=== PATIENT | male | born 1955 | race Caucasian/White ===

== ENCOUNTER 2018-05-05 19:01 | Observation (INO) | payer BC, SELFPAY ==
[2018-05-05] MEDS ORDERED: NA CHLORIDE 0.9% 1,000 ML ONE (19:46)
[2018-05-05] MEDS ORDERED: TETANUS & DIPHTHERIA TOX,ADULT 0.5 ML VIAL ONE (19:46)
--- NOTE | 2018-05-05 20:04 | RAD REPORT ---
EXAM DESCRIPTION: CT - Facial Bones W/ Mpr - 05/05/2018 7:56 pm CLINICAL HISTORY: Facial injury status post fall. Facial pain COMPARISON: None TECHNIQUE: Computed axial tomography of the face was obtained. Coronal and sagittal reconstruction w as performed. All CT scans are performed using dose optimization technique as appropriate and may include automated exposure control or mA/KV adjustment according to patient size. FINDINGS: A fracture is not seen. A TMJ dislocation is not noted. The globes are intact. Fluid within the sinuses is not seen. IMPRESSION: Negative for a facial fracture.
[2018-05-05 20:06] LABS: Absolute Lymphocytes (CBC) 1.5 K/uL (0.7-4.9); Absolute Monocytes 0.6 K/uL (0.1-1.3); Absolute Neutrophil 4.9 K/uL (1.8-8.0); Basophils % 0.4 % (0-1.3); Eosinophils % 1.1 % (0-4.4); Hematocrit 48.3 % (39.6-49.0); Lymphocytes % 21.4 % (15.3-44.8); MCH 36.8 pg (27.0-35.0); MCV 106.5 fL (80-100); MPV 8.1 fL (7.6-11.3); Monocytes % 8.5 % (3.3-12.3); RBC Red Blood Cell Count 4.53 M/uL (4.33-5.43)
[2018-05-05 20:10] LABS: Protime INR 1.02
--- NOTE | 2018-05-05 20:10 | RAD REPORT ---
EXAM DESCRIPTION: CT - Head Brain Wo Cont - 05/05/2018 7:56 pm CLINICAL HISTORY: Head injury status post fall COMPARISON: none TECHNIQUE: Computed axial tomography of the head was obtained. IV contrast was not requested. All CT scans are performed using dose optimization technique as appropriate and may include automated exposure control or mA/KV adjustment according to patient size. FINDINGS: An intracranial bleed is not seen . The ventricles are normal in caliber. No extra-axial fluid collection is noted. Moderate low-density areas within periventricular, deep and subcortical white matter likely represent ischemic changes secondary to small vessel disease. Fluid within the sinuses/ mastoids is not seen. IMPRESSION: No acute intracranial abnormality is seen. If patient's symptoms persist MRI of the bra in would be recommended.
[2018-05-05 20:12] LABS: ALT/SGPT 48 U/L (12-78); AST/SGOT 33 U/L (15-37); Albumin 3.5 g/dL (3.4-5.0); Alkaline Phosphatase 60 U/L (45-117); BUN Blood Urea Nitrogen 8 mg/dL (7-18); Bicarbonate 23 mmol/L (21-32); Bilirubin Direct 0.4 mg/dL (0-0.2); Bilirubin Total 1.3 mg/dL (0.2-1.0); Glucose Level 95 mg/dL (74-106); Lipase 151 U/L (73-393); Magnesium 2.1 mg/dL (1.8-2.4); Potassium 3.7 mmol/L (3.5-5.1); Protein, Total 7.2 g/dL (6.4-8.2); Sodium Level 134 mmol/L (136-145); Troponin (Emerg Dept Use Only) < 0.02 ng/mL (0.0-0.045)
--- NOTE | 2018-05-05 20:40 | RAD REPORT ---
EXAM DESCRIPTION: RAD - Ribs Left - 05/05/2018 8:16 pm CLINICAL HISTORY: Left rib pain FINDINGS: No fracture is seen
--- NOTE | 2018-05-05 20:41 | RAD REPORT ---
EXAM DESCRIPTION: Bryson Galeano (2 Views)05/05/2018 8:16 pm CLINICAL HISTORY: Chest pain COMPARISON: None FINDINGS: The lungs appear clear of acute infiltrate. The heart is normal size IMPRESSION: No acute abnormalities displayed
--- NOTE | 2018-05-05 22:15 | EDPHYS ---
Physician Documentation [facility] Name: Alek Heaton Jr Age: 63 yrs Sex: Male : 1955 Arrival Date: 05/05/2018 Time: 19:02 Bed 2 Private MD: ED Physician Bijan Starr HPI: 05/05 19:34 This 63 yrs old Male presents to ER via EMS with complaints of fall. rn 19:34 Details of fall: The patient fell from an upright position, while walking. Onset: The rn symptoms/episode began/occurred just prior to arrival. Associated injuries: The patient sustained injury to the head, injury to the chest, legs. Severity of symptoms: At their worst the symptoms were mild, in the emergency department the symptoms are unchanged. The patient has not experienced similar symptoms in the past. Reports followed his normal routine of drinking around noon in [place], then [place] 3[place] to another bar, usually does this, when left was walking out back, not sure if passed out or stumbled, but woke up on floor, hit face, scraped up arms/legs/feet. Doesn't feel like anything broken, bouncer had to help him up.. Historical: - Allergies: 19:04 No Known Allergies; ak1 - Home Meds: 19:04 None [Active]; ak1 - PMHx: 19:04 None; ak1 - PSHx: 19:04 None; ak1 - Immunization history:: Adult Immunizations unknown, Last tetanus immunization: unknown. - Social history:: Smoking status: Patient uses tobacco products, chewing tobacco. - Ebola Screening: : No symptoms or risks identified at this time. - Family history:: not pertinent. - Hospitalizations: : No recent hospitalization is reported. ROS: 19:36 Constitutional: Negative for fever, chills, and weight loss, Eyes: + right infraorbital rn bruise and swelling ENT: Negative for discharge Neck: Negative for injury, pain, and swelling, Cardiovascular: + left rib pain Respiratory: Negative for shortness of breath, cough, wheezing Abdomen/GI: Negative for abdominal pain, nausea, vomiting, diarrhea, and constipation, Back: Negative for injury and pain, MS/Extremity: + scraped arms/knees/feet Skin: + abrasions and bruises Neuro: Negative for headache, weakness, numbness, tingling, and seizure. Exam: 19:36 Constitutional: This is a well developed, well nourished patient who is awake, alert, rn and in no acute distress. Head/Face: Normocephalic, + right zygoma area with contusion and ecchymosis, no laceration Eyes: Pupils equal round and reactive to light, extra-ocular motions intact. Lids and lashes normal. Conjunctiva and sclera are non-icteric and not injected. Cornea within normal limits. Neck: NO midline tenderness Chest/axilla: Normal chest wall appearance and motion. Mild tenderness left anterior and lateral ribs without skin changes or crepitus, no contusion Cardiovascular: Regular rate and rhythm with a normal S1 and S2. No gallops, murmurs, or rubs. Normal PMI, no JVD. No pulse deficits. Respiratory: Lungs have equal breath sounds bilaterally, clear to auscultation and percussion. No rales, rhonchi or wheezes noted. No increased work of breathing, no retractions or nasal flaring. Abdomen/GI: Soft, non-tender, with normal bowel sounds. No distension or tympany. No guarding or rebound. No evidence of tenderness throughout. Back: No spinal tenderness. No costovertebral tenderness. Full range of motion. MS/ Extremity: Pulses equal, no cyanosis. Neurovascular intact. Full, normal range of motion. Equal circumference. + numerous abrasions to elbows/hands/knees/toes. NO lacerations. Neuro: Awake and alert, GCS 15, oriented to person, place, time, and situation. Cranial nerves II-XII grossly intact. Motor strength 5/5 in all extremities. Sensory grossly intact. Cerebellar exam normal. Vital Signs: 19:03 BP 151 / 88; Pulse 77; Resp 18; Temp 97.7(O); Pulse Ox 96% on R/A; Weight 90.72 kg (R); ak1 Height 6 ft. 4 in. (193.04 cm) (R); Pain 6/10; 22:09 BP 131 / 76; Pulse 72; Resp 16; Pulse Ox 96% on R/A; ak1 23:45 BP 142 / 90; Pulse 68; Resp 16; Temp 97.9; Pulse Ox 96% on R/A; ak1 19:03 Body Mass Index 24.34 (90.72 kg, 193.04 cm) ak1 MDM: 19:04 Patient medically screened. rn 22:13 Differential diagnosis: abrasion, closed head injury, contusion, fracture. Data rn reviewed: vital signs, nurses notes, lab test result(s), EKG, radiologic studies, CT scan, plain films, and as a result, I will admit patient. Counseling: I had a detailed discussion with the patient and/or guardian regarding: the historical points, exam findings, and any diagnostic results supporting the discharge/admit diagnosis, lab results, radiology results, the need for further work-up and treatment in the hospital. Admission orders: after a detailed discussion of the patient's condition and case, the admit orders are written by me. ED course: Pt still unaware of what happened, feels like passed out prior to fall, states walks that path daily, possibly alcohol related, will admit for syncope and further eval, observation overnight, no acute traumatic findings here. . 05/05 19:17 Order name: Basic Metabolic Panel; Complete Time: 21: 05/05 19:17 Order name: CBC with Diff rn 05/05 19:17 Order name: Hepatic Function; Complete Time: : 05/05 19:17 Order name: Lipase; Complete Time: : 05/05 19:17 Order name: Magnesium; Complete Time: : 05/05 19:17 Order name: Protime (+inr); Complete Time: 21: 05/05 19:17 Order name: CT Head Brain wo Cont; Complete Time: : 05/05 19:17 Order name: Ptt, Activated; Complete Time: 21: 05/05 19:17 Order name: Troponin (emerg Dept Use Only); Complete Time: 21: 05/05 19:17 Order name: XRAY Chest Pa And Lat (2 Views); Complete Time: : rn 05/05 19:17 Order name: XRAY Ribs LEFT; Complete Time: : 05/05 19:17 Order name: ETOH Level; Complete Time: 21: 05/05 19:36 Order name: CT Facial Bones W/O Con; Complete Time: : rn 05/05 20:15 Order name: CBC Smear Scan EDKY 05/05 19:17 Order name: EKG; Complete Time: 19:17 rn 05/05 19:17 Order name: Cardiac monitoring; Complete Time: 19:19 rn 05/05 19:17 Order name: EKG - Nurse/Tech; Complete Time: 19:29 rn 05/05 19:17 Order name: IV Saline Lock; Complete Time: 19:19 rn 05/05 19:17 Order name: Labs collected and sent; Complete Time: 19:42 rn 05/05 19:17 Order name: NPO; Complete Time: 19:29 rn 05/05 19:17 Order name: O2 Per Protocol; Complete Time: 19:19 rn 05/05 19:17 Order name: O2 Sat Monitoring; Complete Time: 19:19 rn Administered Medications: 19:42 Drug: Tetanus-Diphtheria Toxoid Adult 0.5 ml {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 Exp: jd3 06/11/2020. Lot #: [id number]. } Route: IM; Site: left deltoid; 20:48 Follow up: Response: No adverse reaction ak1 20:47 Drug: NS 0.9% 1000 ml Route: IV; Rate: 1000 ml; Site: left antecubital; ak1 21:37 Follow up: IV Status: Completed infusion ak1 Disposition: 05/05/18 22:15 Hospitalization ordered by Siena Escobar for Observation. Preliminary diagnosis are Syncope and collapse, Superficial injury of unspecified part of head, Alcohol abuse with intoxication. - Bed requested for Telemetry/MedSurg (observation). - Status is Observation. ak1 - Condition is Stable. - Problem is new. - Symptoms have improved. UTI on Admission? No Signatures: Dispatcher [employer] [facility] Bijan Starr MD MD rn Krenek, Amber, RN RN ak1 Wendy Rodarte RN RN cg Zach Bermudez RN RN jd3 Corrections: (The following items were deleted from the chart) 19:37 19:34 Reports followed his normal routine of drinking around noon in [place], then rn [place] 3[place] to another bar, usually does this, when left was walking out back, not sure if passed out or stumbled, but woke up on floor, hit face. rn 22:30 22:15 Hospitalization Ordered by Siena Escobar MD for Observation. Preliminary cg diagnosis is Syncope and collapse; Superficial injury of unspecified part of head; Alcohol abuse with intoxication. Bed requested for Telemetry/MedSurg (observation). Status is Observation. Condition is Stable. Problem is new. Symptoms have improved. UTI on Admission? No. rn 05/06 00:14 05/05 22:30 05/05/2018 22:15 Hospitalization Ordered by Siena Escobar MD for ak1 Observation. Preliminary diagnosis is Syncope and collapse; Superficial injury of unspecified part of head; Alcohol abuse with intoxication. Bed requested for Telemetry/MedSurg (observation). Status is Observation. Condition is Stable. Problem is new. Symptoms have improved. UTI on Admission? No. cg
--- NOTE | 2018-05-05 22:15 | ER ---
Nurse's Notes [facility] Name: Alek Heaton Jr Age: 63 yrs Sex: Male : 1955 Arrival Date: 05/05/2018 Time: 19:02 Bed 2 Private MD: Diagnosis: Syncope and collapse;Superficial injury of unspecified part of head;Alcohol abuse with intoxication Presentation: 05/05 19:06 Presenting complaint: EMS states: [place] [address] [place], pt had 3 drinks at ak1 bar plus "5 drinks in [place]" per pt. pt c/o left side pain. pt vomited on scene. EMS [facility]SB[facility] 75. pt with abrasions to right cheek, bilateral knees. Transition of care: patient was not received from another setting of care. Onset of symptoms was May 05, 2018. Risk Assessment: Do you want to hurt yourself or someone else? Patient reports no desire to harm self or others. Initial Sepsis Screen: Does the patient meet any 2 criteria? No. Patient's initial sepsis screen is negative. Does the patient have a suspected source of infection? No. Patient's initial sepsis screen is negative. Care prior to arrival: None. 19:06 Method Of Arrival: EMS: [facility] ak1 19:06 Acuity: LIZY 3 ak1 Triage Assessment: 19:04 General: Appears in no apparent distress. Behavior is calm, cooperative. Pain: ak1 Complains of pain in left ribs. Historical: - Allergies: 19:04 No Known Allergies; ak1 - Home Meds: 19:04 None [Active]; ak1 - PMHx: 19:04 None; ak1 - PSHx: 19:04 None; ak1 - Immunization history:: Adult Immunizations unknown, Last tetanus immunization: unknown. - Social history:: Smoking status: Patient uses tobacco products, chewing tobacco. - Ebola Screening: : No symptoms or risks identified at this time. - Family history:: not pertinent. - Hospitalizations: : No recent hospitalization is reported. Screenin:07 Abuse screen: Denies threats or abuse. Nutritional screening: No deficits noted. jd3 Tuberculosis screening: No symptoms or risk factors identified. Fall Risk IV access (20 points). Ambulatory Aid- None/Bed Rest/Nurse Assist (0 pts). Gait- Weak (10 pts.). Mental Status- Oriented to own ability (0 pts). Total Dawson Fall Scale indicates Low Risk Score (25-44 pts). Fall prevention measures have been instituted. Side Rails Up X 2 Placed close to Nursing Station Frequent Obs/Assesments occuring. Assessment: 19:03 General: Appears uncomfortable, Behavior is calm, cooperative, appropriate for age. jd3 Pain: Complains of pain in right cheek, left lateral anterior chest, right knee and left knee Quality of pain is described as aching, tender. Neuro: Level of Consciousness is awake, alert, obeys commands, Oriented to person, place, time, situation. Cardiovascular: Heart tones S1 S2 present Capillary refill < 3 seconds Patient's skin is warm and dry. Respiratory: Airway is patent Respiratory effort is even, unlabored, Respiratory pattern is regular, symmetrical, Breath sounds are clear bilaterally. GI: Abdomen is round non-distended, Bowel sounds present X 4 quads. Abd is soft and non tender X 4 quads. Reports nausea. : No signs and/or symptoms were reported regarding the genitourinary system. EENT: No signs and/or symptoms were reported regarding the EENT system. Derm: Skin is intact, Skin is dry, Skin is normal, Skin temperature is warm. Musculoskeletal: Circulation, motion, and sensation intact. Range of motion: intact in all extremities, Reports pain in left ribs up to left shoulder. Injury Description: Abrasion sustained to right cheek, right knee and left knee. 21:00 Reassessment: Patient appears in no apparent distress at this time. pt resting with ak1 eyes closed, resp even and unlabored. will continue to monitor. 23:43 Reassessment: Patient appears in no apparent distress at this time. No changes from ak1 previously documented assessment. dr Melvin at bedside. Vital Signs: 19:03 BP 151 / 88; Pulse 77; Resp 18; Temp 97.7(O); Pulse Ox 96% on R/A; Weight 90.72 kg (R); ak1 Height 6 ft. 4 in. (193.04 cm) (R); Pain 6/10; 22:09 BP 131 / 76; Pulse 72; Resp 16; Pulse Ox 96% on R/A; ak1 23:45 BP 142 / 90; Pulse 68; Resp 16; Temp 97.9; Pulse Ox 96% on R/A; ak1 19:03 Body Mass Index 24.34 (90.72 kg, 193.04 cm) ak1 ED Course: 19:02 Patient arrived in ED. ak1 19:03 Zach Bermudez, MCKAYLA is Primary Nurse. jd3 19:03 Bijan Starr MD is Attending Physician. rn 19:03 Arm band placed on Patient placed in an exam room, on a stretcher, on tooling specialist, ak1 on pulse oximetry, Patient notified of wait time. 19:08 Patient has correct armband on for positive identification. Bed in low position. Call jd3 light in reach. Side rails up X2. Adult w/ patient. 19:09 Triage completed. ak1 19:13 Maintain EMS IV. Dressing intact. Good blood return noted. Site clean \\T\\ dry. Gauge \\T\\ liliana 3 site: 20 G left AC. 19:57 CT Head Brain wo Cont In Process Unspecified. EDMS 19:57 CT Facial Bones W/O Con In Process Unspecified. EDMS 20:15 XRAY Chest Pa And Lat (2 Views) In Process Unspecified. EDMS 20:15 XRAY Ribs LEFT In Process Unspecified. EDMS 22:15 Siena Escobar MD is Hospitalizing Provider. rn 22:52 No provider procedures requiring assistance completed. Patient admitted, IV remains in ak1 place. 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 Exp: jd3 06/11/2020. Lot #: [id number]. } Route: IM; Site: left deltoid; 20:48 Follow up: Response: No adverse reaction ak1 20:47 Drug: NS 0.9% 1000 ml Route: IV; Rate: 1000 ml; Site: left antecubital; ak1 21:37 Follow up: IV Status: Completed infusion ak1 Outcome: 22:15 Decision to Hospitalize by Provider. rn 22:52 Condition: stable ak1 22:52 Instructed on the need for admit. 23:59 Admitted to Med/surg accompanied by tech, via wheelchair, room 420, with chart, Report ak1 called to Benita 05/06 00:14 Patient left the ED. ak1 Signatures: Dispatcher [employer] EDMS Bijan Starr MD MD rn Krenek, Amber, RN RN vasile1 Zach Bermudez RN RN jd3 Oliver Cedeño mw2 Corrections: (The following items were deleted from the chart) 05/05 23:46 22:09 BP 131 / 76; Pulse 72bpm; Resp 16bpm; Pulse Ox 68% RA; mw2 ak1
[2018-05-05 22:59] LABS: Platelet Estimate ADEQ; Urine White Blood Cell Casts OK
[2018-05-05 23:00] LABS: Blood Morphology Comment NOTED (NOT SEEN); Macrocytosis 1+
[2018-05-06] MEDS ORDERED: ACETAMINOPHEN 500 MG TAB PO PRN (00:03)
[2018-05-06] MEDS ORDERED: ONDANSETRON 4 MG/2 ML VIAL IV PRN (00:03)
[2018-05-06] MEDS: NA CHLORIDE 0.9% 1,000 ML IV SCH ×2 (00:32→20:03)
[2018-05-06 05:08] LABS: Absolute Lymphocytes (CBC) 1.3 K/uL (0.7-4.9); Absolute Monocytes 0.9 K/uL (0.1-1.3); Absolute Neutrophil 6.7 K/uL (1.8-8.0); Basophils % 0.3 % (0-1.3); Eosinophils % 0.4 % (0-4.4); Hematocrit 45.7 % (39.6-49.0); Lymphocytes % 14.2 % (15.3-44.8); MCH 36.2 pg (27.0-35.0); MCV 105.8 fL (80-100); MPV 8.2 fL (7.6-11.3); Monocytes % 10.1 % (3.3-12.3); RBC Red Blood Cell Count 4.32 M/uL (4.33-5.43)
[2018-05-06 05:11] LABS: Potassium 4.5 mmol/L (3.5-5.1)
--- NOTE | 2018-05-06 05:17 | P.HP ---
Certification for Inpatient Patient admitted to: Observation With expected LOS: <2 Midnights Practitioner: I am a practitioner with admitting privileges, knowledge of patient current condition, hospital course, and medical plan of care. Services: Services provided to patient in accordance with Admission requirements found in Title 42 Section 412.3 of the Code of Federal Regulations Patient History Date of Service: 05/05/18 Reason for admission: Syncope History of Present Illness: Mr Heaton is a 63-year-old male with history of alcohol abuse, who had dinner and a few beers in a local restaurant [facility], previously he has been in [place] drinking more beer with friends. On the way out, he does not know how it happened, but he felt to the ground hitting his head and left side of his body. He is unable to say whether he lost his conscious or not. Once on the floor he stated that was unable to for a little while, and was help by the bouncer to stand up. He said that he urinated himself. He said he was drinking alcohol but no more than usual. No history of fever or chills. In ER toxicology report shows alcohol level of 180, CT of the head and facial bones were negative, chest-x-ray showed not acute infiltrate or rib fracture. At the time of my examination, the patient was alert and oriented and he was able to provide all the history. Allergies No Known Allergies Allergy (Verified 05/05/18 22:50) Home medications list reviewed: Yes Home Medications: NK [No Home Meds] 05/06/18 - Past Medical/Surgical History Has patient received pneumonia vaccine in the past: No Diabetic: No -: Alcohol abuse Past Surgical History: Reviewed- Non-Contributory - Family History Family History: Reviewed- Non-Contributory - Social History Smoking Status: Never smoker (chewing tobacco) Alcohol use: Yes CD- Drugs: No Caffeine use: No Place of Residence: Home Review of Systems 10-point ROS is otherwise unremarkable Physical Examination - Vital Signs Temperature: 98.7 F Blood Pressure: 137/65 Pulse: 71 Respirations: 20 Pulse Ox (%): 94 - Physical Exam General: Alert, In no apparent distress HEENT: Atraumatic, PERRLA, Mucous membr. moist/pink, EOMI, Sclerae nonicteric Neck: Supple, 2+ carotid pulse no bruit, No LAD, Without JVD or thyroid abnormality Respiratory: Clear to auscultation bilaterally, Normal air movement Cardiovascular: Regular rate/rhythm, Normal S1 S2 Gastrointestinal: Normal bowel sounds, No tenderness Musculoskeletal: No tenderness Integumentary: Skin lesion (Both knee, right hand) Neurological: Normal speech, Normal strength at 5/5 x4 extr, Normal tone, Normal affect Lymphatics: No axilla or inguinal lymphadenopathy - Studies Laboratory Data (last 24 hrs) 05/05/18 19:34: PT 12.0, INR 1.02, APTT 24.4 05/05/18 19:34: WBC 7.2, Hgb 16.7, Hct 48.3, Plt Count 165 05/05/18 19:34: Sodium 134 L, Potassium 3.7, BUN 8, Creatinine 1.20, Glucose 95 , Magnesium 2.1, Total Bilirubin 1.3 H, AST 33, ALT 48, Alkaline Phosphatase 60 , Lipase 151 Assessment and Plan - Problems (Diagnosis) (1) Syncope Current Visit: Yes Status: Acute Qualifiers: Syncope type: unspecified Qualified Code(s): R55 - Syncope and collapse (2) Alcohol abuse Current Visit: Yes Status: Acute (3) Alcohol intoxication Current Visit: Yes Status: Acute Qualifiers: Complication of substance-induced condition: with unspecified complication Qualified Code(s): F10.929 - Alcohol use, unspecified with intoxication, unspecified - Plan The patient will be admitted to the hospital due to a syncopal episode. Differential diagnosis include alcohol intoxication, also seizures. Will order brain MRI, EEG, neurology consult. Continue banana bag and IV fluids. Watch for alcohol withdrawal symptoms. - Advance Directives Does patient have a Living Will: No Does patient have a Durable POA for Healthcare: No - Code Status/Comfort Care Code Status Assessed: Yes Code Status: Full Code
--- NOTE | 2018-05-06 07:14 | EKG ---
Test Date: 2018-05-05 Test Time: 19:39:58 B2B Sales Manager: ESTER MEASUREMENT RESULTS: Intervals: Rate: 61 WY: 196 QRSD: 92 QT: 466 QTc: 469 [place]: P: 47 W[place]: 196 QRS: 12 T: 36 INTERPRETIVE STATEMENTS: Normal sinus rhythm Normal ECG Compared to ECG 09/23/2014 09:39:43 Sinus bradycardia no longer present Electronically Signed On 05-06-18 07:13:44 STRETCH MACHINE OPERATOR by Moisés Chi
[2018-05-06] MEDS ORDERED: INFLUENZA VACCINE (for 3y+) 0.5 ML DOSE IMVAC ONE (08:00)
--- NOTE | 2018-05-06 09:40 | RAD REPORT ---
EXAM DESCRIPTION: MRI - Brain W/Wo Cont - 05/06/2018 9:25 am CLINICAL HISTORY: Syncope COMPARISON: May 05, [address] TECHNIQUE: Axial, sagittal, and coronal magnetic images of the brain were obtained. 20 cc MultiHance administered intravenously FINDINGS: Moderate abnormal signal within periventricular, deep and subcortical white matter likely represent ischemic changes secondary to small vessel disease. The ventricles are normal in caliber. Diffusion-weighted sequences do not demonstrate evidence of an acute infarction. No abnormal enhancement within the brain is seen. An extra-axial fluid collection is not noted. Sinuses and mastoids are clear. IMPRESSION: Moderate abnormal signal within periventricular, deep and subcortical white matter likel y represent ischemic changes secondary to small vessel disease No acute intracranial abnormality seen
[2018-05-06] MEDS: FOLIC ACID 1 MG, MULTIVITAMINS INJ 10 ML, THIAMINE HCL 100 MG in NA CHLORIDE 0.9% 1,000 ML IV SCH (10:02)
--- NOTE | 2018-05-06 14:21 | P.PN ---
Subjective Date of Service: 05/06/18 Chief Complaint: Syncope Pt seen and examined at bedside. Chart Reviewed. Case DW with Patient and Nursing at bedside. EEG pending and neurology consult Pending. Doing well overall. States has not gotten out of bed yet. Review of Systems 10-point ROS is otherwise unremarkable Physical Examination - Vital Signs Temperature: 98.0 F Blood Pressure: 163/77 Pulse: 67 Respirations: 18 Pulse Ox (%): 95 - Physical Exam General: Alert, In no apparent distress HEENT: Atraumatic, PERRLA, EOMI Neck: Supple, JVD not distended Respiratory: Clear to auscultation bilaterally, Normal air movement Cardiovascular: Regular rate/rhythm, Normal S1 S2 Gastrointestinal: Normal bowel sounds, No tenderness Musculoskeletal: No tenderness Integumentary: No rashes Neurological: Normal speech, Normal tone, Normal affect Lymphatics: No axilla or inguinal lymphadenopathy - Studies Laboratory Data (last 24 hrs) 05/05/18 19:34: PT 12.0, INR 1.02, APTT 24.4 05/05/18 19:34: WBC 7.2, Hgb 16.7, Hct 48.3, Plt Count 165 05/05/18 19:34: Sodium 134 L, Potassium 3.7, BUN 8, Creatinine 1.20, Glucose 95 , Magnesium 2.1, Total Bilirubin 1.3 H, AST 33, ALT 48, Alkaline Phosphatase 60 , Lipase 151 Medications List Reviewed: Yes Assessment And Plan - Current Problems (Diagnosis) (1) Syncope Onset Date: 05/06/18 Current Visit: Yes Status: Acute Plan: Syncopal Episode most likely 2.2 to Alcohol intoxication but R.o Seizures vs other organic Causes -EEG and Neurology consult Pending -Orthostatic WNL -Continue to monitor closely with IV fluids Qualifiers: Syncope type: unspecified Qualified Code(s): R55 - Syncope and collapse (2) Alcohol intoxication Onset Date: 05/06/18 Current Visit: Yes Status: Acute Qualifiers: Complication of substance-induced condition: with unspecified complication Qualified Code(s): F10.929 - Alcohol use, unspecified with intoxication, unspecified (3) Alcohol abuse Onset Date: 05/06/18 Current Visit: Yes Status: Acute Discharge Plan: Home Plan to discharge in: 48 Hours - Code Status/Comfort Care Code Status Assessed: Yes Critical Care: No
[2018-05-07] MEDS: NA CHLORIDE 0.9% 1,000 ML IV SCH (06:12)
[2018-05-07] MEDS: FOLIC ACID 1 MG, MULTIVITAMINS INJ 10 ML, THIAMINE HCL 100 MG in NA CHLORIDE 0.9% 1,000 ML IV SCH (09:00)
--- NOTE | 2018-05-07 16:43 | P.DS ---
Admission Date: 05/05/18 Discharge Date: 05/07/18 Disposition: ROUTINE DISCHARGE Discharge Condition: GOOD Reason for Admission: Syncope - Problems (1) Syncope Onset Date: 05/06/18 Status: Acute Qualifiers: Syncope type: unspecified Qualified Code(s): R55 - Syncope and collapse (2) Alcohol intoxication Onset Date: 05/06/18 Status: Acute Qualifiers: Complication of substance-induced condition: with unspecified complication Qualified Code(s): F10.929 - Alcohol use, unspecified with intoxication, unspecified (3) Alcohol abuse Onset Date: 05/06/18 Status: Acute Brief History of Present Illness: Mr Heaton is a 63-year-old male with history of alcohol abuse, who had dinner and a few beers in a local restaurant [facility], previously he has been in [place] drinking more beer with friends. On the way out, he does not know how it happened, but he felt to the ground hitting his head and left side of his body. He is unable to say whether he lost his conscious or not. Once on the floor he stated that was unable to for a little while, and was help by the bouncer to stand up. He said that he urinated himself. He said he was drinking alcohol but no more than usual. No history of fever or chills. In ER toxicology report shows alcohol level of 180, CT of the head and facial bones were negative, chest-x-ray showed not acute infiltrate or rib fracture. At the time of my examination, the patient was alert and oriented and he was able to provide all the history. Hospital Course: Overall during the hospital stay patient remained stable Patient was initially admitted to the hospital for syncope was found to have alcohol intoxication and had the floor and fell on his right side. Patient was admitted for syncopal workup here in the hospital. Patient an echocardiogram done here in the hospital which was without any acute abnormality. Patient also ambulated and was tolerating his diet well. No other syncopal episode was noted while here in the hospital. Patient thus was discharged home under stable condition was asked to follow up with primary care provider 1-2 days post discharge. Vital Signs/Physical Exam: Temp Pulse Resp BP Pulse Ox 98.7 F 69 20 169/94 H 94 05/07/18 12:00 05/07/18 12:00 05/07/18 12:00 05/07/18 12:00 05/07/18 12:00 General: Alert, In no apparent distress HEENT: Atraumatic, PERRLA, EOMI Neck: Supple, JVD not distended Respiratory: Clear to auscultation bilaterally, Normal air movement Cardiovascular: Regular rate/rhythm, Normal S1 S2 Gastrointestinal: Normal bowel sounds, No tenderness Musculoskeletal: No tenderness Integumentary: No rashes Neurological: Normal speech, Normal tone, Normal affect Lymphatics: No axilla or inguinal lymphadenopathy Laboratory Data at Discharge: WBC 9.0 K/uL (4.3-10.9) D 05/06/18 03:30 Hgb 15.7 g/dL (13.6-17.9) 05/06/18 03:30 Hct 45.7 % (39.6-49.0) 05/06/18 03:30 Plt Count 148 K/uL (152-406) L 05/06/18 03:30 PT 12.0 SECONDS (9.5-12.5) 05/05/18 19:34 INR 1.02 05/05/18 19:34 APTT 24.4 SECONDS (24.3-36.9) 05/05/18 19:34 Sodium 135 mmol/L (136-145) L 05/06/18 03:30 Potassium 4.5 mmol/L (3.5-5.1) 05/06/18 03:30 BUN 8 mg/dL (7-18) 05/06/18 03:30 Creatinine 1.00 mg/dL (0.55-1.3) 05/06/18 03:30 Glucose 90 mg/dL (74-106) 05/06/18 03:30 Magnesium 2.1 mg/dL (1.8-2.4) 05/05/18 19:34 Total Bilirubin 1.3 mg/dL (0.2-1.0) H 05/05/18 19:34 AST 33 U/L (15-37) 05/05/18 19:34 ALT 48 U/L (12-78) 05/05/18 19:34 Alkaline Phosphatase 60 U/L (45-117) 05/05/18 19:34 Lipase 151 U/L (73-393) 05/05/18 19:34 Home Medications: NK [No Home Meds] 05/06/18 Diet: Regular Activity: Ad nayely
== END 2018-05-07 11:57 | disposition home or self-care (01) ==
LOC: ER 19:01 → ERHOLD 22:21 → 4TH 05-06
PROVIDERS: ADMIT Internal Medicine; ATTEND Internal Medicine
DX: R55 Syncope and collapse (principal); F10.129 Alcohol abuse with intoxication, unspecified; S00.83XA Contusion of other part of head, initial encounter; W18.39XA Other fall on same level, initial encounter; Y92.89 Other specified places as the place of occurrence of the external cause; Z23 Encounter for immunization
CPT/HCPCS: 36415; 70450; 70486; 70553; 71046; 76377; 80048; 80076; 80320; 83690; 83735; 84484; 85025; 85610; 85730; 90714; 93005; 94760; 95816; 96360; 99285; A9577; J2405; J3411; J7030